=== PATIENT | female | born 1970 | race Caucasian/White ===

== ENCOUNTER 2019-08-01 06:17 | Outpatient (CLI) | payer OTHER ==
[2019-08-01 18:20] LABS: SARS-CoV-2 MS2 Positive; SARS-CoV-2 N Gene Negative; SARS-CoV-2 S Gene Negative; SARS-CoV-2 orf1ab Negative
--- NOTE | 2019-08-03 16:35 | EKG ---
Test Reason : Blood Pressure : / mmHG Vent. Rate : 085 BPM Atrial Rate : 085 BPM P-R Int : 138 ms QRS Dur : 080 ms QT Int : 340 ms P-R-T Axes : 070 083 038 degrees QTc Int : 404 ms Sinus rhythm with occasional Premature ventricular complexes and Possible Premature atrial complexes with Abberant conduction Right atrial enlargement Borderline ECG No previous ECGs available Confirmed by ANITHA MASSEY (2) on 08/03/2019 4:34:59 PM Referred By: BENEDICTO Confirmed By:ANITHA MASSEY
== END 2019-08-01 06:18 | disposition home or self-care (01) ==
LOC: LABBT 06:17
PROVIDERS: ATTEND Student in an Organized Health Care Education/Training Program
DX: Z01.818 Encounter for other preprocedural examination (principal); Z11.59 Encounter for screening for other viral diseases; N92.1 Excessive and frequent menstruation with irregular cycle
CPT/HCPCS: 87635; 93005; 93010; U0003

== ENCOUNTER 2019-08-05 06:13 | Day surgery (SDC) | payer OTHER ==
[2019-08-01 09:39] VITALS: BMI 29.9
[2019-08-01 11:52] LABS: Hemoglobin 16.5 g/dL (12.0-16.0); Mean Corpuscular HGB CONC 34.2 g/dL (32.0-36.0); Mean Corpuscular Hemoglobin 30.8 pg (27.0-31.0); Mean Corpuscular Volume 90.2 fL (78.0-98.0); Mean Platelet Volume 8.8 fL (7.4-10.4); Platelet Count 400 thou/uL (130-400); RBC Distribution Width 12.1 % (11.5-14.5); Red Blood Cell (RBC) Count 5.36 mill/uL (4.20-5.40); White Blood Cell (WBC) Count 11.2 thou/uL (4.8-10.8)
[2019-08-01 12:08] LABS: Anion Gap 16 mmol/L (10-20); BUN (Urea Nitrogen) 9 mg/dL (7.0-18.7); Calc. Creatinine Clearance 0 mL/min (70-130); Calcium 9.8 mg/dL (7.8-10.44); Carbon Dioxide 22 mmol/L (22-29); Chloride 102 mmol/L (98-107); Estimated GFR-MDRD 78; Glucose 131 mg/dL (70-105); Sodium 137 mmol/L (136-145)
[2019-08-01 12:14] LABS: Potassium 2.9 mmol/L (3.5-5.1)
[2019-08-05] MEDS ORDERED: CeleCOXIB 100 MG CAP ONE (06:21)
[2019-08-05] MEDS ORDERED: Gabapentin 300 MG CAP ONE (06:21)
[2019-08-05] MEDS ORDERED: Famotidine 20 MG TAB ONE (06:21)
[2019-08-05] MEDS ORDERED: Famotidine/PF 20 mg/2ml Vial ONE (06:22)
[2019-08-05] MEDS ORDERED: Fentanyl 100 MCG/2 ML VIAL ONE ×4 (06:46→11:34)
[2019-08-05] MEDS ORDERED: Lidocaine 1% w/Epinephrine 1:100K 20 ML VIAL ONE (06:52)
[2019-08-05] MEDS ORDERED: Bupivacaine PF 0.5% 30 ML VIAL ONE (06:52)
[2019-08-05 06:59] LABS: Potassium 3.4 mmol/L (3.5-5.1)
[2019-08-05] MEDS ORDERED: Clindamycin/D5W 900 mg/50 ml Premix Bag ONE (07:26)
[2019-08-05] MEDS ORDERED: Levofloxacin 500 mg/D5W 100 ml Premix Bag ONE (07:26)
[2019-08-05] MEDS ORDERED: Midazolam HCl 2 mg/2 ml Vial ONE (07:28)
[2019-08-05] MEDS ORDERED: Promethazine HCl 25 MG/ML VIAL SLOW IVP PRN (10:16)
[2019-08-05] MEDS ORDERED: HYDROmorphone 2 MG/ML VIAL SLOW IVP PRN (10:16)
[2019-08-05] MEDS ORDERED: Meperidine HCl/PF 25 MG/ML VIAL SLOW IVP PRN (10:16)
[2019-08-05] MEDS ORDERED: Ketorolac Tromethamine 30 MG/ML VIAL IVP PRN (10:16)
[2019-08-05] MEDS ORDERED: Promethazine HCl 25 MG/ML VIAL IM PRN ×2 (10:16→10:19)
[2019-08-05] MEDS ORDERED: Ondansetron HCl/PF 4 MG/2 ML Vial IVP PRN (10:16)
[2019-08-05] MEDS ORDERED: Bisacodyl 10 MG SUPP PR PRN (10:19)
[2019-08-05] MEDS ORDERED: Zolpidem Tartrate 5 MG TAB PO PRN (10:19)
[2019-08-05] MEDS ORDERED: HYDROcodone/Acetaminophen 5/325 mg Tablet PO PRN (10:19)
[2019-08-05] MEDS ORDERED: Ondansetron PF 4 MG/2 ML Vial IVP PRN (10:19)
[2019-08-05] MEDS ORDERED: diphenhydrAMINE 25 MG CAP PO PRN (10:19)
[2019-08-05] MEDS ORDERED: Fentanyl 100 MCG/2 ML VIAL SLOW IVP PRN (10:19)
[2019-08-05] MEDS ORDERED: Simethicone Chewable 80 MG TAB PO PRN (10:19)
[2019-08-05] MEDS ORDERED: Lidocaine 1% PF 5 ML VIAL ONE (10:47)
[2019-08-05] MEDS ORDERED: Glycopyrrolate 0.2 MG/ML 5 ML SYRINGE ONE (10:47)
[2019-08-05] MEDS ORDERED: Succinylcholine Chloride 20 MG/ML 10 ml SYRINGE FS ONE (10:47)
[2019-08-05] MEDS ORDERED: Rocuronium Bromide 10 MG/ML (10ML VIAL) ONE (10:47)
[2019-08-05] MEDS ORDERED: Dexamethasone 20 MG/5 ML VIAL ONE (10:47)
[2019-08-05] MEDS ORDERED: Ondansetron PF 4 MG/2 ML Vial ONE (10:47)
[2019-08-05] MEDS ORDERED: PHENYLEPHRINE-NS 100 MCG/ML 10 ML SYRINGE ONE (10:47)
[2019-08-05] MEDS ORDERED: EPHEDRINE 25 MG/5 ML SYRINGE ONE (10:47)
[2019-08-05] MEDS ORDERED: PROPOFOL 200 MG/20 ML VIAL ONE (10:47)
[2019-08-05] MEDS: Ibuprofen 800 MG TAB PO SCH ×2 (15:04→21:21)
[2019-08-05] MEDS: HYDROcodone/Acetaminophen 5/325 mg Tablet PO PRN ×2 (15:04→19:58)
[2019-08-05] MEDS: Sodium Chloride 0.9% 1,000 ML IV SCH ×2 (18:50→22:12)
--- NOTE | 2019-08-05 20:19 | EKG ---
Test Reason : PREOP Blood Pressure : / mmHG Vent. Rate : 071 BPM Atrial Rate : 071 BPM P-R Int : 166 ms QRS Dur : 082 ms QT Int : 366 ms P-R-T Axes : 063 073 015 degrees QTc Int : 397 ms Normal sinus rhythm Normal ECG When compared with ECG of 01-AUG-2019 10:32, Premature ventricular complexes are no longer Present Abberant conduction is no longer Present Confirmed by ALFRED BETH, SYessica (4) on 08/05/2019 8:18:58 PM Referred By: BENEDICTO Confirmed By:DR. Anahi SIMON MD
[2019-08-06] MEDS: Acetaminophen 325 MG TAB PO PRN ×2 (01:15→08:49)
[2019-08-06] MEDS: Ibuprofen 800 MG TAB PO SCH (05:48)
[2019-08-06 07:53] VITALS: BP 110/56; TEMP 98.7
--- NOTE | 2019-08-06 08:04 | PDOC.EVN ---
Event Note - Event Note Event Note: S: Doing well, ambulated to bathroom, janine reg diet, voiding O: VSSAF tmax 99 NAD unlabored resp s/appttp/nd/ inc c/d/i No e/c/c POD1 s/p RATLH LSO right ovarian cystectomy VSSAF Doing well postop pain controlled, voiding janine po Repeat potassium level, cont KCL on DC, FU with PCP Hgb pending this am, no s/sx anemia Cont incentive spriometry Path pending DC home FU 2 weeks
[2019-08-06] MEDS ORDERED: Potassium Chloride 20 MEQ TAB PO SCH (08:15)
[2019-08-06 08:29] LABS: Hemoglobin 13.5 g/dL (12.0-16.0); Mean Corpuscular HGB CONC 34.4 g/dL (32.0-36.0); Mean Corpuscular Hemoglobin 31.2 pg (27.0-31.0); Mean Corpuscular Volume 90.9 fL (78.0-98.0); Mean Platelet Volume 8.5 fL (7.4-10.4); Platelet Count 312 thou/uL (130-400); Red Blood Cell (RBC) Count 4.32 mill/uL (4.20-5.40); White Blood Cell (WBC) Count 17.1 thou/uL (4.8-10.8)
[2019-08-06 08:52] LABS: Anion Gap 13 mmol/L (10-20); BUN (Urea Nitrogen) 10 mg/dL (7.0-18.7); Calc. Creatinine Clearance 125 mL/min (70-130); Calcium 8.4 mg/dL (7.8-10.44); Carbon Dioxide 22 mmol/L (22-29); Chloride 104 mmol/L (98-107); Estimated GFR-MDRD 81; Glucose 159 mg/dL (70-105); Potassium 3.4 mmol/L (3.5-5.1); Sodium 136 mmol/L (136-145)
[2019-08-06] MEDS ORDERED: Docusate Calcium (SURFAK) 240 MG CAP PO SCH (09:00)
--- NOTE | 2019-08-07 13:40 | OP ---
DATE OF PROCEDURE: 08/05/2019 PREOPERATIVE DIAGNOSES: 1. Uterine fibroids. 2. Menorrhagia. 3. Bilateral ovarian cysts. 4. Pelvic pain. POSTOPERATIVE DIAGNOSES: 1. Uterine fibroids 2. Menorrhagia 3. Bilateral ovarian cysts 4. Pelvic pain PROCEDURES: Robotic-assisted total laparoscopic hysterectomy, left salpingo-oophorectomy, right ovarian cystectomy, and right salpingectomy with extracorporeal morcellation. FINANCIAL OPERATIONS ANALYST SURGEON: Saida Chris PA-C ESTIMATED BLOOD LOSS: 50 cc. IV FLUIDS: 1 L of crystalloid. URINE OUTPUT: 220 cc. PATHOLOGY: Uterus, cervix, bilateral fallopian tubes, left ovary and right ovarian cyst wall. ANESTHESIA: General endotracheal. FINDINGS: Large uterine fibroids, approximately 16-week size uterus. The uterus sounded to 15 cm. There was 1 fibroid off the left into the broad ligament. There was also a right large fundal fibroid. The ovaries had multiple cysts on them bilaterally. The left was more cystic and somewhat fibrotic appearing than the right; therefore, the left ovary was removed as this was felt to be abnormal appearing. The right ovarian cysts were initially incised and simple appearing and 2 separate cysts were then peeled off the ovary and sent for pathology. The ureters were dissected out bilaterally during the case in order to avoid inadvertent damage. These were visible vermiculating during the case. There was excellent hemostasis at the conclusion of the case and no spillage of uterine contents during the contained morcellation procedure. OPERATIVE TECHNIQUE: Patient was taken to the operating room, where general anesthesia was obtained without difficulty. The patient was prepped and draped in a sterile fashion in dorsal lithotomy position. A Scanlon catheter was placed in the bladder. Speculum was placed in the vagina. The anterior lip of the cervix was grasped with a single-tooth tenaculum. The cervix was progressively dilated with Jonatan dilators and sounded to 15 cm. The DAO manipulator was assembled with a 4 cm ring and a 12 cm tip. The DAO was then inserted into the uterus and tenaculum and speculum were removed out of the vagina. Legs were placed in low lithotomy after balloons were inflated on the manipulator. Attention was turned to the abdomen. Anesthetic was infiltrated into the umbilicus, the Veress needle was inserted into the incision and an opening pressure of 4 mmHg was noted. Pneumoperitoneum was obtained. The Veress needle was removed. The 12 mm trocar was advanced into the abdomen and confirmed placement with the robotic camera. Steep Trendelenburg was obtained. It was felt reasonable to approach this surgery laparoscopically therefore the 12mm trocar was removed, the umbilical incision was extended to 3cm and the mini arely was placed inside the peritoneum and the cinched up retrieval bag was placed into the upper abdomen and the mini gel point affixed to the arely with the 12mm trocar. Right and left lower quadrant 8 mm robotic trocars were placed under direct visualization after infiltrating with anesthetic and an 11 mm right upper quadrant port was placed under direct visualization as well after infiltrating with the anesthetic. The robot was then docked. The right robotic arm contained a monopolar scissors. Left robotic arm contained a fenestrated bipolar. The surgeon console then took control. The left fallopian tube was grasped and elevated. At this time, the ovary was noted to be abnormal appearing with multiple cysts and some fibrosis. Therefore, the ureter was identified crossing the pelvic brim medially. The infundibulopelvic ligament was clamped with the fenestrated and cauterized followed by transection with the scissors, noting hemostasis. There were multiple engorged venous sinuses in the mesosalpinx that were cauterized as well with the fenestrated prior to incision. The round ligament was then cauterized in the midportion and incised and the peritoneum was dissected off the broad ligament fibroid. The retroperitoneum was opened up and bluntly dissected off the fibroid to ensure the ureter was not intimately associated with this fibroid. The posterior leaf of the broad ligament was incised as well as the anterior leaf of the broad ligament. Visualization of the bladder flap was difficult due to the fibroid. However, using a grasper to hold the uterus posteriorly, the vesicouterine peritoneum was able to be grasped and incised close to the uterus to ensure that there was no bladder in there. The bladder was also decompressed. After this incision, the peritoneum was tented up and the adventitia was dissected off the pubocervical fascia. Attention was turned to the right side. The right round ligament was easily visible. Therefore, it was clamped in the midportion and cauterized and incised. It was then backtracked toward the utero-ovarian ligament cauterizing with the fenestrated and incising with the scissors on cautery. At that time, the cysts were noted in the right ovary as well. There were 2 cysts present that were small. The cyst was then incised and drained and then the cyst wall was grasped on the inner portion and was peeled away off the ovary and the same procedure was performed on the other ovarian cysts and these were removed out of the abdomen and sent for final pathology. The utero-ovarian was then clamped and cauterized multiple times with the fenestrated, then incised with the scissors. The mesosalpinx was incised with a fenestrated as well and cauterized and then removed out of the abdomen. The posterior leaf of the broad ligament was incised and there was good visualization of the lateral aspect as there was no fibroid present on this side. The ureter was visible in the retroperitoneum and traced back to where it dove underneath the uterine vessel. The anterior leaf of the broad ligament was also incised down to the bladder flap. The vessels were skeletonized on the right side. There was some ooziness with the skeletonization and hemostasis was achieved with the fenestrated. Once the vessels had adequately been skeletonized, they were cauterized multiple times at the level of the internal cervical os with the fenestrated. The bladder flap was then further developed by scoring on the pubocervical fascia and bluntly dissecting down that tissue below the level of the colpotomizer ring. At that time, there was more manipulation of the uterus and it was able to be deviated to the right more so in order to visualize the vessels on the left side. These vessels were then skeletonized with the scissors as well as bluntly pushing and spreading with the fenestrated and the vessels were then clamped and cauterized multiple times with the fenestrated. The colpotomy was performed with the scissors and once the uterus had been completely disconnected, then the manipulator was removed out of the vagina. The bag was brought into the pelvis and opened and the uterus was placed into the bag easily. The bag was then cinched and brought out of the GelPOINT and the robot was undocked and all instruments were removed out of the abdomen. The patient was flattened out, the bag was brought out of the Mini Arely and up on into the umbilical incision. The uterus was grasped with a Ozzy clamp and morcellated at the umbilicus using a C-incision technique. Morcellation took an additional 20 minutes. All tissue was brought out of that umbilical incision and sent for final pathology. The Arely was then removed. The fascia of the umbilical incision was closed with a 0 PDS in a running fashion. The skin was then closed with a 4-0 Monocryl in a subcuticular fashion. Dermabond was applied over all incisions. The vagina was checked and noted to be hemostatic. All instruments were removed out of the vagina. The patient tolerated the procedure well. Sponge, lap, and needle counts correct x2. The patient was taken to recovery room in stable condition. Patient received Ancef 2 g prior to the procedure. Job ID: [id number] [facility]
--- NOTE | 2019-08-12 05:55 | PQF ---
[facility] POST DISCHARGE CLINICAL DOCUMENTATION IMPROVEMENT CLARIFICATION FORM l Todays Date: 08/11/19 l Patients Name JENNIFER MANN l l Admit Date 08/05/19 l Disch Date 08/05/19 Share Dairy Farmer Name Page Tong Email: [email or web address] Cell: [phone] To be completed by Share Dairy Farmer: Present Clinical Indicators - Signs / Symptoms Results and Location in Medical Record [ ] Documentation of: [ ] [ ] Documentation of: [ ] [ ] Documentation of: [ ] [ ] Documentation of: [ ] [ ] Risks [ ] [ ] [ ] Treatment [ ] Uterine fibroids, Bilateral ovarian cysts Query for size of resected uterus (grams) [ ] [ ] To be completed by Physician: STACEY OSORIO The documentation in this patients record requires clarification to ensure coding compliance and accuracy. Check the appropriate box and include in your discharge summary. [X ] see pathology report for gram weight [ ] [ ] [ ] Please check this box if this does not apply to this patient [ ] Unable to determine [ ] Other diagnosis: Review the following information and exercise your independent professional judgment in responding to the clarification. Based upon the clinical findings, risk factors, and treatment, please clarify if you are treating one of the above probable or suspected diagnoses. Physician Signature: Date Time MTDD
== END 2019-08-06 10:24 | disposition home or self-care (01) ==
LOC: SDC 06:13 → 3SW 10:09 → SDC 08-06 10:24
PROVIDERS: ATTEND Student in an Organized Health Care Education/Training Program
DX: D25.0 Submucous leiomyoma of uterus (principal); N72 Inflammatory disease of cervix uteri; D27.0 Benign neoplasm of right ovary; D27.1 Benign neoplasm of left ovary; N83.8 Other noninflammatory disorders of ovary, fallopian tube and broad ligament; I10 Essential (primary) hypertension; E78.00 Pure hypercholesterolemia, unspecified; L40.50 Arthropathic psoriasis, unspecified; Z79.899 Other long term (current) drug therapy; Z88.0 Allergy status to penicillin; Z88.1 Allergy status to other antibiotic agents; Z88.2 Allergy status to sulfonamides
CPT/HCPCS: 36415; 80048; 84132; 85027; 86850; 86900; 86901; 88307; 93005; 93010; J0690; J1100; J1956; J2001; J2250; J2405; J2704; J3010; J3490; S0020; S0028

== ENCOUNTER 2024-05-29 14:52 | Outpatient (CLI) | payer OTHER | END 2024-05-29 14:53 | disposition home or self-care (01) | LOC: BICMAMMO 14:52 | PROVIDERS: ATTEND Family Medicine | DX: Z12.31 Encounter for screening mammogram for malignant neoplasm of breast (principal); R92.1 Mammographic calcification found on diagnostic imaging of breast; N63.15 Unspecified lump in the right breast, overlapping quadrants; Z98.82 Breast implant status | CPT/HCPCS: 77063; 77067 ==